=== PATIENT | male | born 1940 | race Caucasian/White ===

== ENCOUNTER 2017-03-11 09:38 | Emergency (ER) | payer MEDICARE, BC ==
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
[2017-03-11] MEDS ORDERED: oxyCODONE/ACETAMINOPHEN 5 MG/325 MG TAB PO ONE (14:00)
== END 2017-03-11 12:17 | disposition home or self-care (01) ==
LOC: NEPC 09:38
DX: S22.31XA Fracture of one rib, right side, initial encounter for closed fracture (principal); V19.9XXA Pedal cyclist (driver) (passenger) injured in unspecified traffic accident, initial encounter; Y93.55 Activity, bike riding; Y92.414 Local residential or business street as the place of occurrence of the external cause; M19.90 Unspecified osteoarthritis, unspecified site; I10 Essential (primary) hypertension
CPT/HCPCS: 12011; 70450; 70486; 71101; 72125; 73030; 73130; 94150